=== PATIENT | female | born 1955 | race Caucasian/White ===

== ENCOUNTER 2024-04-28 10:15 | Outpatient (RCR) | payer OTHER, SELFPAY | END 2024-04-28 12:15 | LOC: PUL 10:15 | PROVIDERS: Referring Provider Internal Medicine; Visit Provider Internal Medicine | DX: J43.2 Centrilobular emphysema (principal); J84.9 Interstitial pulmonary disease, unspecified | CPT/HCPCS: G0237; G0238 ==